=== PATIENT | female | born 1930 | race Caucasian/White ===

== ENCOUNTER 2020-11-08 12:11 | Outpatient (CLI) | payer MEDICARE ==
[~2020-11-08] VITALS: Ht 157.5 cm; Wt 91.2 kg
[2020-11-08] MEDS ORDERED: CELEBREX 200MG200 MG PO (18:12)
[2020-11-08] MEDS ORDERED: CALCIUM 500 +1 EAC3 PO (18:12)
[2020-11-08] MEDS ORDERED: CO Q-10400 MG PO (18:13)
[2020-11-08] MEDS ORDERED: HYGROTON TAB 2525 MG PO (18:13)
[2020-11-08] MEDS ORDERED: LASIX TAB 20 MG20 MG PO (18:14)
[2020-11-08] MEDS ORDERED: KLOR-CON 1010 MEQ PO (18:14)
[2020-11-08] MEDS ORDERED: LEVOTHYROXINE100 MC2 PO (18:15)
[2020-11-08] MEDS ORDERED: PRAVASTATIN SOD80 MG PO (18:16)
[2020-11-08] MEDS ORDERED: DETROL LA2 MG PO (18:17)
[2020-11-08] MEDS ORDERED: HYTRIN CAP 1 MG1 MG PO (18:17)
== END 2020-11-08 21:49 | disposition home or self-care (01) ==
LOC: OPSV 12:11 → MED SURG 4 15:00 → OPSV 21:49
DX: D64.9 Anemia, unspecified (principal)
CPT/HCPCS: 36415; 36430; 85018; 86850; 86900; 86901; 86920; J7050; P9016